=== PATIENT | female | born 1990 | race Caucasian/White ===

== ENCOUNTER 2016-09-14 06:14 | Emergency (ER) | payer OTHER ==
[2016-09-14 06:17] VITALS: BMI 20.3
[2016-09-14 06:37] VITALS: TEMP 97.8; O2SAT 100
[2016-09-14] MEDS ORDERED: Sodium Chloride 0.9% 1,000 ML IV ONE (07:19)
--- NOTE | 2016-09-14 07:31 | C.PDOC ---
History Of Present Illness 26-year-old female, presents to the emergency department with pmh ovarian cysts complaints of menstrual cramping, that started approximately one hour ago. Pain is persistent in nature, and non-radiating. Patient has not taken anything for the pain. States that symptoms are consistent with her menses every month, with no change. Denies any urinary frequency, dysuria, hematuria, fevers, vaginal discharge, rashes, or any other associated symptoms. No other complaints at this time. Time Seen by Provider: 09/14/16 07:10 Chief Complaint (Nursing): Abdominal Pain Past Medical History Reviewed: Historical Data, Nursing Documentation, Vital Signs Vital Signs: Last Vital Signs Temp 97.8 F 09/14/16 06:33 Pulse 62 09/14/16 09:20 Resp 16 09/14/16 09:20 BP 107/73 09/14/16 09:20 Pulse Ox 100 09/14/16 09:20 Family History: States: No Known Family Hx - Social History Hx Alcohol Use: No Hx Substance Use: No - Immunization History Hx Tetanus Toxoid Vaccination: No Hx Influenza Vaccination: Yes Hx Pneumococcal Vaccination: No Review Of Systems Except As Marked, All Systems Reviewed And Found Negative. Constitutional: Negative for: Fever, Chills Cardiovascular: Negative for: Chest Pain, Palpitations Genitourinary: Positive for: Pelvic Pain (Menses.). Negative for: Dysuria, Frequency, Hematuria, Vaginal Discharge, Rash Neurological: Negative for: Headache Physical Exam - Physical Exam Appears: Non-toxic, No Acute Distress Skin: Warm, Dry, No Rash Head: Atraumatic, Normacephalic Eye(s): bilateral: Normal Inspection, EOMI Nose: Normal Oral Mucosa: Moist Lips: Normal Appearing Neck: Normal ROM Chest: Symmetrical Respiratory: No Accessory Muscle Use Gastrointestinal/Abdominal: Soft, Tenderness (mild suprapubic tenderness), No Guarding, No Rebound Back: No CVA Tenderness, No Vertebral Tenderness Extremity: Normal ROM Neurological/Psych: Oriented x3, Normal Speech ED Course And Treatment - Laboratory Results Result Diagrams: 09/14/16 07:42 09/14/16 07:42 O2 Sat by Pulse Oximetry: 100 Progress Note: 07:10. Bloodwork, Urine culture and UA/HCG ordered and reviewed. Patient treated with IVFs and IV Toradol. Progress: Patient is resting comfortably, and in no acute distress; abdomen soft and non-tender. Patient feels comfortable going home noting she gets the same pain monthly. Discussed siogns of concern and isntructed to return if symptoms persist or worsen. Patient will be discharged home for outpatient f/u w/ OBGYN. All questions answered, she was asked to return for any new or worsening symptoms. Disposition - Disposition Disposition: HOME/ ROUTINE Disposition Time: 09:04 Condition: STABLE Additional Instructions: Follow up with your primary medical doctor or clinic in 2-5 days for further evaluation. Take medications as prescribed. Return to the emergency department at any time if symptoms persist or worsen. Prescriptions: Naproxen [Naprosyn] 1 tab PO BID PRN #20 tab PRN Reason: Pain Instructions: Dysmenorrhea (ED) - Clinical Impression Clinical Impression: Dysmenorrhea - Scribe Statement The provider has reviewed the documentation as recorded by the Mauroibrandy Hui All medical record entries made by the Mauroibrandy were at my direction and personally dictated by me. I have reviewed the chart and agree that the record accurately reflects my personal performance of the history, physical exam, medical decision making, and the department course for this patient. I have also personally directed, reviewed, and agree with the discharge instructions and disposition.
[2016-09-14 07:48] LABS: BASO # 0.1 K/uL (0.0-0.2); BASO % 1.3 % (0.0-2.0); EOS # 0.1 K/uL (0.0-0.7); EOS % 1.2 % (0.0-4.0); HEMATOCRIT 40.1 % (34.0-47.0); LYMPH # 2.9 K/uL (1.0-4.3); LYMPH % 31.9 % (20.0-40.0); MEAN CORPUSCULAR HEMOGLOBIN 30.1 pg (27.0-31.0); MEAN CORPUSCULAR HGB CONC 34.2 g/dL (33.0-37.0); MEAN PLATELET VOLUME 7.6 fL (7.2-11.7); MONO # 0.5 K/uL (0.0-0.8); MONO % 5.8 % (0.0-10.0); RED CELL DISTRIBUTION WIDTH 13.1 % (11.5-14.5); WHITE BLOOD COUNT 9.1 K/uL (4.8-10.8)
[2016-09-14 07:50] LABS: RBC URINE 1 /hpf (0-3); URINE BILIRUBIN NEGATIVE (NEGATIVE); URINE BLOOD NEGATIVE (NEGATIVE); URINE COLOR Yellow (YELLOW); URINE GLUCOSE (UA) NORMAL (Normal); URINE KETONE NEGATIVE (NEGATIVE); URINE LEUKOCYTE ESTERASE NEG Leu/uL (Negative); URINE PROTEIN NEGATIVE (NEGATIVE); URINE UROBILINOGEN NORMAL mg/dL (0.2-1.0); WBC URINE 1 /hpf (0-5)
[2016-09-14 07:53] LABS: MEAN CELL VOLUME 88.1 fL (81.0-99.0)
[2016-09-14 07:57] LABS: CHLORIDE 99 mmol/L (98-107); SODIUM 136 mmol/L (132-148)
[2016-09-14 07:58] LABS: POTASSIUM 3.9 mmol/L (3.6-5.2)
[2016-09-14 08:00] LABS: ALB/GLOB RATIO 1.4 (1.0-2.1); ALKALINE PHOSPHATASE 51 U/L (38-126); ALT/SGPT 12 U/L (9-52); AST/SGOT 20 U/L (14-36); BILIRUBIN,TOTAL 0.8 mg/dL (0.2-1.3); BLOOD UREA NITROGEN 16 mg/dL (7-17); CARBON DIOXIDE 26 mmol/L (22-30); GFR AFRICAN-AMERICAN > 60; GLUCOSE,RANDOM 87 mg/dL (65-105); TOTAL PROTEIN 7.9 g/dL (6.3-8.3)
[2016-09-14 08:29] VITALS: RESP 16
[2016-09-14 09:21] VITALS: BP 107/73; PULSE 62
== END 2016-09-14 09:21 | disposition home or self-care (01) ==
LOC: C.ER 06:14
DX: N94.6 Dysmenorrhea, unspecified (principal)
CPT/HCPCS: 80053; 81001; 83690; 84703; 85025; 87086; 96374; 99285; J1885; J7040

== ENCOUNTER 2016-10-06 12:29 | Emergency (ER) | payer OTHER ==
[2016-10-06 12:30] VITALS: BMI 20.3
[2016-10-06 12:43] VITALS: RESP 18; TEMP 98.1
--- NOTE | 2016-10-06 14:45 | US ---
HISTORY: Left breast mass felt at 2 o'clock position for 2 months 26-year-old female. Maternal grandmother with breast cancer at age 42 or 50. COMPARISON: None TECHNIQUE: BREAST LIMITED LT FINDINGS: LEFT BREAST: Two o'clock 2 cm from the nipple patient's area of concern: 2 small cysts are seen measuring 4 x 3 x 5 mm and 3 x 2 x 3 mm. There is no axillary lymphadenopathy. Benign-appearing incidental left axillary lymph node noted. No worrisome pathology seen on ultrasound in the area of interest. IMPRESSION: No sonographic evidence of malignancy. Incidental sub cm findings - cysts detailed above. Clinical follow-up recommended BIRAD: BIRADS -2 Benign ultrasound Guarding patient's area of palpable concern, follow-up clinically. No sonographic worrisome pathology here seen
[2016-10-06 15:07] VITALS: BP 124/72; PULSE 72; O2SAT 98
--- NOTE | 2016-10-06 16:08 | C.PDOC ---
History Of Present Illness 26 y/o female present to ED with complaints of intermittent left breast lump for 2 months. Patient notes that lump appears in conjunction with menstrual cycle. Patient denies nipple discharge, fever, swelling, pain or any other complaints at this time. Time Seen by Provider: 10/06/16 12:45 Chief Complaint (Nursing): Breast Problem History Per: Patient History/Exam Limitations: no limitations Onset/Duration Of Symptoms: Days, Intermittent Episodes Current Symptoms Are (Timing): Still Present Past Medical History Reviewed: Historical Data, Nursing Documentation, Vital Signs Vital Signs: Last Vital Signs Temp 98.1 F 10/06/16 12:38 Pulse 72 10/06/16 15:06 Resp 18 10/06/16 15:06 BP 124/72 10/06/16 15:06 Pulse Ox 98 10/06/16 16:31 Family History: States: No Known Family Hx - Social History Hx Alcohol Use: No Hx Substance Use: No - Immunization History Hx Tetanus Toxoid Vaccination: No Hx Influenza Vaccination: Yes Hx Pneumococcal Vaccination: No Review Of Systems Except As Marked, All Systems Reviewed And Found Negative. Constitutional: Negative for: Fever, Chills Gastrointestinal: Negative for: Abdominal Pain Skin: Negative for: Rash Physical Exam - Physical Exam Appears: Non-toxic, No Acute Distress Skin: Normal Color, Warm Head: Atraumatic, Normacephalic Chest: Other (Freely moveable soft mass 1cm at 2'oclock position on left breast , mild tender to touch) Cardiovascular: Rhythm Regular, No Murmur Respiratory: Normal Breath Sounds, No Rales, No Rhonchi, No Wheezing Gastrointestinal/Abdominal: Soft, No Tenderness, No Guarding, No Rebound Extremity: Normal ROM, Capillary Refill (<2 seconds) Neurological/Psych: Oriented x3, Normal Speech, Normal Cognition Additional Physical Exam Comments: Patient was seen by Dr. Thao and Pharmacist ED Course And Treatment O2 Sat by Pulse Oximetry: 98 (RA) Pulse Ox Interpretation: Normal Disposition - Disposition Referrals: Griselda Mccain MD [Staff Provider] - Disposition: HOME/ ROUTINE Disposition Time: 13:15 Condition: GOOD Additional Instructions: Thank you for letting us take care of you today. Your provider was Dr. Thao. You were treated for a breast cyst. The emergency medical care you received today was directed at your acute symptoms. If you were prescribed any medication, please fill it and take as directed. It may take several days for your symptoms to resolve. Return to the Emergency Department if your symptoms worsen, do not improve, or if you have any other problems. Please contact your doctor or call one of the physicians/clinics you have been referred to that are listed on the Patient Visit Information form that is included in your discharge packet. Bring any paperwork you were given at discharge with you along with any medications you are taking to your follow up visit. Our treatment cannot replace ongoing medical care by a primary care provider (PCP) outside of the emergency department. Thank you for allowing the [facility] team to be part of your care today. Follow up with Dr. Mccain in 5-7 days to establish outpatient care. Instructions: Breast Mass (ED) - Clinical Impression Clinical Impression: Cyst of breast - Scribe Statement The provider has reviewed the documentation as recorded by the Ashleigh Banegas All medical record entries made by the Ashleigh were at my direction and personally dictated by me. I have reviewed the chart and agree that the record accurately reflects my personal performance of the history, physical exam, medical decision making, and the department course for this patient. I have also personally directed, reviewed, and agree with the discharge instructions and disposition.
== END 2016-10-06 15:07 | disposition home or self-care (01) ==
LOC: C.ER 12:29
DX: N60.02 Solitary cyst of left breast (principal)

== ENCOUNTER 2017-03-06 11:00 | Emergency (ER) | payer OTHER ==
[2017-03-06 11:00] VITALS: BMI 20.3
[2017-03-06 11:09] VITALS: RESP 18
--- NOTE | 2017-03-06 11:29 | C.PDOC ---
History Of Present Illness 26 y/o female with a hx of PCOS, c/o severe pelvic cramps for 2 days. Patient took Ibuprofen and Advil with no relief. Patient reports seeing her OB years ago and was told she needs surgery, but the patient has never followed up. Patient notes she usually has cramps with her menstrual cycle, but the cramps are worse than normal. Patient started her period yesterday. Denies fever, chills, dysuria, or hematuria. Time Seen by Provider: 03/06/17 11:24 Chief Complaint (Nursing): Female Genitourinary History Per: Patient History/Exam Limitations: no limitations Onset/Duration Of Symptoms: Days Current Symptoms Are (Timing): Still Present Quality Of Discomfort: Cramping Severity: Mild Past Medical History Reviewed: Historical Data, Nursing Documentation, Vital Signs Vital Signs: Last Vital Signs Temp 98.2 F 03/06/17 13:50 Pulse 82 03/06/17 13:50 Resp 18 03/06/17 13:50 BP 124/85 03/06/17 13:50 Pulse Ox 100 03/06/17 13:57 Family History: States: Unknown Family Hx - Social History Hx Alcohol Use: No Hx Substance Use: No - Immunization History Hx Tetanus Toxoid Vaccination: No Hx Influenza Vaccination: Yes Hx Pneumococcal Vaccination: No Review Of Systems Except As Marked, All Systems Reviewed And Found Negative. Constitutional: Negative for: Fever, Chills Genitourinary: Positive for: Pelvic Pain. Negative for: Dysuria, Hematuria, Vaginal Discharge, Rash Physical Exam - Physical Exam Appears: Non-toxic, No Acute Distress Skin: Warm, Dry Head: Atraumatic, Normacephalic Oral Mucosa: Moist Chest: Symmetrical Cardiovascular: Rhythm Regular, No Murmur Respiratory: Normal Breath Sounds, No Rales, No Rhonchi, No Wheezing Gastrointestinal/Abdominal: Soft, Tenderness (Suprapubic tenderness) Neurological/Psych: Oriented x3 ED Course And Treatment - Laboratory Results Result Diagrams: 03/06/17 11:49 03/06/17 11:49 O2 Sat by Pulse Oximetry: 100 Pulse Ox Interpretation: Normal - CT Scan/US US Transvaginal Other Rad Studies (CT/US): Interpreted By Me, Read By Radiologist CT/US Interpretation: HISTORY: h/o PCOS, pelvic pain. COMPARISON: None available. TECHNIQUE: FINDINGS: UTERUS: The uterus is anteverted measuring approximately 7.2 x 3.2 x 4.3 cm. Normal in size and appearance. No fibroid or other mass lesion seen. ENDOMETRIUM: Measures 3.7 mm in diameter. Unremarkable. CERVIX: No cervical abnormality identified. RIGHT OVARY: Measures approximately 3.2 x 1.8 x 3.4 cm. No solid mass. Normal flow. . Small follicular cyst measuring approximately 0.9 x 0.6 x 0.9 cm. LEFT OVARY: Measures approximately 3.5 x 1.6 x 3.3 cm. No solid mass. Normal flow. . Small follicular cyst measuring approximately 1.1 x 0.8 x 1.1. FREE FLUID: No significant free fluid noted. OTHER FINDINGS: None. IMPRESSION: Small bilateral ovarian follicles or cysts. Progress Note: Blood work, Transvaginal US, IV fluids, Toradol IV, UA Reassessment Condition: Improved (stable to be d/c with LOOM FIXER follow up) Disposition - Disposition Referrals: Raymond Montero [Staff Provider] - Disposition: HOME/ ROUTINE Disposition Time: 13:52 Condition: STABLE Additional Instructions: Follow up with OBGYN within 1-2 days. Return to ED if feel worse. Prescriptions: Norgestimate-Ethinyl Estradiol [Sprintec 28 Day Tablet] 1 each PO DAILY #28 tablet Instructions: Pelvic Pain in Women (ED) Forms: [facility] (Italian) - Clinical Impression Clinical Impression: Pelvic pain - Scribe Statement The provider has reviewed the documentation as recorded by the Ashleigh Lopez All medical record entries made by the Scribe were at my direction and personally dictated by me. I have reviewed the chart and agree that the record accurately reflects my personal performance of the history, physical exam, medical decision making, and the department course for this patient. I have also personally directed, reviewed, and agree with the discharge instructions and disposition.
[2017-03-06] MEDS ORDERED: Lactated Ringer's 1,000 ML IV STA (11:32)
[2017-03-06 12:01] LABS: BASO # 0.1 K/uL (0.0-0.2); BASO % 1.1 % (0.0-2.0); EOS # 0.1 K/uL (0.0-0.7); HEMATOCRIT 40.9 % (34.0-47.0); LYMPH # 2.4 K/uL (1.0-4.3); LYMPH % 41.7 % (20.0-40.0); MEAN CELL VOLUME 88.7 fL (81.0-99.0); MEAN CORPUSCULAR HEMOGLOBIN 29.8 pg (27.0-31.0); MEAN CORPUSCULAR HGB CONC 33.6 g/dL (33.0-37.0); MEAN PLATELET VOLUME 7.8 fL (7.2-11.7); MONO # 0.4 K/uL (0.0-0.8); MONO % 6.7 % (0.0-10.0); NRBC % 0.1 % (0.0-2.0); WHITE BLOOD COUNT 5.8 K/uL (4.8-10.8)
[2017-03-06 12:04] LABS: BLOOD UREA NITROGEN 11 mg/dL (7-17); CALCIUM 8.8 mg/dl (8.6-10.4); CARBON DIOXIDE 23 mmol/L (22-30); CHLORIDE 100 mmol/L (98-107); GFR AFRICAN-AMERICAN > 60; GLUCOSE,RANDOM 79 mg/dL (65-105); POTASSIUM 3.6 mmol/L (3.6-5.2); SODIUM 135 mmol/L (132-148); TOTAL PROTEIN 7.5 g/dL (6.3-8.3)
[2017-03-06 12:05] LABS: ALB/GLOB RATIO 1.6 (1.0-2.1); ALKALINE PHOSPHATASE 37 U/L (38-126); ALT/SGPT 29 U/L (9-52); AST/SGOT 19 U/L (14-36); BILIRUBIN,TOTAL 0.9 mg/dL (0.2-1.3)
[2017-03-06 12:25] LABS: RBC URINE 7 /hpf (0-3); URINE BILIRUBIN NEGATIVE (NEGATIVE); URINE BLOOD 3+ (NEGATIVE); URINE COLOR Yellow (YELLOW); URINE GLUCOSE (UA) NORMAL (Normal); URINE KETONE NEGATIVE (NEGATIVE); URINE LEUKOCYTE ESTERASE NEG Leu/uL (Negative); URINE PROTEIN NEGATIVE (NEGATIVE); URINE UROBILINOGEN NORMAL mg/dL (0.2-1.0)
[2017-03-06 13:51] VITALS: BP 124/85; PULSE 82; TEMP 98.2
--- NOTE | 2017-03-06 13:51 | US ---
HISTORY: h/o PCOS, pelvic pain COMPARISON: None available. TECHNIQUE: FINDINGS: UTERUS: The uterus is anteverted measuring approximately 7.2 x 3.2 x 4.3 cm. Normal in size and appearance. No fibroid or other mass lesion seen. ENDOMETRIUM: Measures 3.7 mm in diameter. Unremarkable. CERVIX: No cervical abnormality identified. RIGHT OVARY: Measures approximately 3.2 x 1.8 x 3.4 cm. No solid mass. Normal flow. . Small follicular cyst measuring approximately 0.9 x 0.6 x 0.9 cm LEFT OVARY: Measures approximately 3.5 x 1.6 x 3.3 cm. No solid mass. Normal flow. . Small follicular cyst measuring approximately 1.1 x 0.8 x 1.1 FREE FLUID: No significant free fluid noted. OTHER FINDINGS: None. IMPRESSION: Small bilateral ovarian follicles or cysts.
[2017-03-06 13:52] VITALS: O2SAT 100
== END 2017-03-06 14:04 | disposition home or self-care (01) ==
LOC: C.ER 11:00
DX: R10.2 Pelvic and perineal pain (principal)
CPT/HCPCS: 76830; 80053; 81001; 84703; 85025; 96361; 96374; 99285; J1885; J7120

== ENCOUNTER 2017-06-02 12:39 | Emergency (ER) | payer OTHER ==
[2017-06-02 14:13] VITALS: BMI 18.8
[2017-06-02 14:17] VITALS: TEMP 98.3
--- NOTE | 2017-06-02 15:13 | C.PDOC ---
History Of Present Illness Pt c/o rash. Time Seen by Provider: 06/02/17 14:39 Chief Complaint (Nursing): Abnormal Skin Integrity History Per: Patient Onset/Duration Of Symptoms: Days (3) Current Symptoms Are (Timing): Still Present Location Of Injury: Right: Shoulder, Posterior: Back Quality Of Symptoms: Itching Severity: Moderate Additional History Per: Prior Records Past Medical History Reviewed: Historical Data, Nursing Documentation, Vital Signs Vital Signs: Last Vital Signs Temp 98.3 F 06/02/17 14:12 Pulse 68 06/02/17 14:12 Resp 20 06/02/17 14:12 BP 132/83 06/02/17 14:12 Pulse Ox 100 06/02/17 14:12 - Medical History PMH: No Chronic Diseases Family History: States: Unknown Family Hx - Social History Hx Alcohol Use: No Hx Substance Use: No - Immunization History Hx Tetanus Toxoid Vaccination: No Hx Influenza Vaccination: Yes Hx Pneumococcal Vaccination: No Review Of Systems Except As Marked, All Systems Reviewed And Found Negative. Constitutional: Negative for: Fever, Weakness Eyes: Negative for: Conjunctivae Inflammation ENT: Negative for: Throat Pain, Throat Swelling Respiratory: Negative for: Shortness of Breath Gastrointestinal: Negative for: Vomiting Musculoskeletal: Negative for: Neck Pain Skin: Positive for: Lesions Neurological: Negative for: Weakness, Numbness, Headache Physical Exam - Physical Exam Appears: Non-toxic, No Acute Distress Skin: Warm, Dry, Rash (Circular lesions on right shoulder and back with scaly edges and central clearing. ) Head: Atraumatic, Normacephalic Eye(s): bilateral: Normal Inspection, PERRL, EOMI Oral Mucosa: Moist, No Drooling, No Trismus Neck: Normal ROM, Supple Lymphatic: No Adenopathy Extremity: Normal ROM, No Pedal Edema Neurological/Psych: Oriented x3, Normal Speech, Normal Motor, Normal Sensation ED Course And Treatment O2 Sat by Pulse Oximetry: 100 Pulse Ox Interpretation: Normal Disposition Counseled Patient/Family Regarding: Diagnosis, Need For Followup, Rx Given - Disposition Referrals: Melissa Brenner MD [Non-Staff] - Disposition: HOME/ ROUTINE Disposition Time: 15:14 Condition: STABLE Additional Instructions: Follow up with your doctor. Return to the ER if you develop fever, worsening of symptoms or if you have any other concerns. Prescriptions: Clotrimazole 1% Cream [Lotrimin 1%] 1 applic TOP BID #1 tube Instructions: Ringworm (DC) - Clinical Impression Clinical Impression: Tinea corporis
[2017-06-02 15:24] VITALS: BP 130/68; PULSE 79; RESP 18; O2SAT 98
== END 2017-06-02 15:24 | disposition home or self-care (01) ==
LOC: C.ER 12:39 → EDBD 12:39 → C.ER 15:24
DX: B35.4 Tinea corporis (principal)

== ENCOUNTER 2018-02-07 09:34 | Emergency (ER) | payer OTHER ==
[2018-02-07 09:35] VITALS: BMI 19.7
[2018-02-07 09:48] VITALS: BP 116/78; PULSE 77; RESP 16; TEMP 98; O2SAT 98
[2018-02-07 10:13] LABS: HCG,QUALITATIVE URINE NEGATIVE (NEGATIVE); SQUAMOUS EPITHIAL 9 /hpf (0-5); URINE BACTERIA RARE (<OCC); URINE BILIRUBIN NEGATIVE (NEGATIVE); URINE BLOOD NEGATIVE (NEGATIVE); URINE CLARITY Clear (Clear); URINE COLOR Yellow (YELLOW); URINE GLUCOSE (UA) NORMAL (Normal); URINE LEUKOCYTE ESTERASE NEG Leu/uL (Negative); URINE PROTEIN NEGATIVE (NEGATIVE); URINE UROBILINOGEN NORMAL mg/dL (0.2-1.0)
--- NOTE | 2018-02-07 10:38 | C.PDOC ---
History Of Present Illness 27 y/o female presents to the ED with complaints of bilateral breast pain and feeling emotional for 2 weeks. Patient also reports having copious white vaginal discharge, which is odorless, and not painful or itchy. States that her period was late this month by 1 week and she noted symptoms developed afterward. Of note, she went to visit her in [place] in December, and had unprotected sex at that time. Patient denies using control. Reports she had negative tests at home. She otherwise denies any hematuria, dysuria, urinary frequency, abdominal pain, fever, chills, or back pain. Time Seen by Provider: 02/07/18 09:56 Chief Complaint (Nursing): Female Genitourinary History Per: Patient History/Exam Limitations: no limitations Onset/Duration Of Symptoms: Days Current Symptoms Are (Timing): Still Present Recent travel outside of the [place]: Yes (to [place]) Abnormal Vaginal Bleeding: No Last Menstral Period: 01/24/18 Past Medical History Reviewed: Historical Data, Nursing Documentation, Vital Signs Vital Signs: Last Vital Signs Temp 98 F 02/07/18 09:45 Pulse 77 02/07/18 09:45 Resp 16 02/07/18 09:45 BP 116/78 02/07/18 09:45 Pulse Ox 98 02/07/18 09:45 - Medical History Other PMH: Ovarian cysts, diagnosed 10 years ago Surgical History: No Surg Hx Family History: States: Unknown Family Hx - Social History Hx Alcohol Use: No Hx Substance Use: No - Immunization History Hx Tetanus Toxoid Vaccination: No Hx Influenza Vaccination: Yes Hx Pneumococcal Vaccination: No Review Of Systems Constitutional: Negative for: Fever, Chills ENT: Positive for: Other (bilateral breast pain) Cardiovascular: Negative for: Chest Pain Gastrointestinal: Negative for: Abdominal Pain Genitourinary: Positive for: Vaginal Discharge. Negative for: Dysuria, Frequency, Hematuria, Vaginal Bleeding Musculoskeletal: Negative for: Back Pain Skin: Negative for: Rash Neurological: Negative for: Weakness, Numbness Physical Exam - Physical Exam Appears: Well, Non-toxic, No Acute Distress Skin: Warm, Dry, No Rash Head: Atraumatic, Normacephalic Eye(s): bilateral: Normal Inspection, PERRL, EOMI Neck: Normal ROM, Supple Chest: Symmetrical, Other (Bilateral breast tenderness) Cardiovascular: Rhythm Regular, No Murmur Respiratory: Normal Breath Sounds, No Accessory Muscle Use, Other (No respiratory distress) Gastrointestinal/Abdominal: Soft, No Tenderness, No Distention Pelvic: Other (Patient refused) Extremity: Bilateral: Atraumatic, Normal Color And Temperature, Normal ROM Neurological/Psych: Oriented x3, Normal Speech ED Course And Treatment O2 Sat by Pulse Oximetry: 98 (RA) Pulse Ox Interpretation: Normal Progress Note: UA and urine culture sent to the lab. Urine HCG is negative. UA is otherwise clear. Informed patient of results. Offered pelvic exam, patient declined at this time. States she has an appointment next week with [facility]. Instructed to follow up without fail or return to the ER for new or worsening symptoms. Disposition Counseled Patient/Family Regarding: Studies Performed, Diagnosis, Need For Followup - Disposition Referrals: [facility] [Outside] Disposition: HOME/ ROUTINE Disposition Time: 10:40 Condition: STABLE Additional Instructions: FOLLOW UP WITH [facility] SCHEDULED NEXT WEDNESDAY RETURN TO ER IF YOU HAVE ANY CONCERNING SYMPTOMS Forms: [employer] (Chilean) Print Language: CITIZEN OF [place] - Clinical Impression Clinical Impression: Vaginal discharge, Breast tenderness - Scribe Statement The provider has reviewed the documentation as recorded by the Ashleigh Augustin Provider Attestation: All medical record entries made by the Ashleigh were at my direction and personally dictated by me. I have reviewed the chart and agree that the record accurately reflects my personal performance of the history, physical exam, medical decision making, and the department course for this patient. I have also personally directed, reviewed, and agree with the discharge instructions and disposition.
== END 2018-02-07 10:44 | disposition home or self-care (01) ==
LOC: C.ER 09:34
DX: N64.89 Other specified disorders of breast (principal); N89.8 Other specified noninflammatory disorders of vagina